=== PATIENT | female | born 1970 | race Caucasian/White ===

== ENCOUNTER 2017-02-13 18:32 | Observation (INO) | payer OTHER ==
--- OUTSIDE RECORDS SUMMARY | 2017-02-13 18:56 | XMS REPORT | Continuity of Care Document ---
:1970 Author Organization [facility] ([facility]) [place] [address] Phone [phone] Care Team Providers Name Role Phone Cathy Bell Primary Care Provider [phone] Source Comments This disclosure is being made pursuant to the Care Everywhere program, applicable federal and state laws, and may not contain all informaitonavailable regarding this patient.[facility] ([facility]) Active Allergies and Adverse Reactions Allergen Noted Date Severity Reactions Comments Carbamazepine Unknown Phenytoin Unknown Current Medications Prescription Sig. Disp. Refills Start Date End Date Status lisinopril (PRINIVIL) 20 take 20 mg by mouth Active mg tablet daily. GOTU GRABIEL, CENTELLA take by mouth. Active ASIATICA, PO PEG 400-Propylene Glycol instill onto the Active (SYSTANE) 0.4-0.3 % Dpet left eye as needed. aspirin 325 mg tablet take 325 mg by Active mouth daily. MULTI-VITAMIN PO Take by mouth. 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 Pain in joint, ankle and foot 11/03/2001 Immunizations Name Dates Previously Given Next Due Novel Influenza H1N1 09/13/2009 Social History Tobacco Use Types Packs/Day Years Used Date Current Every Day Smoker Alcohol Use Drinks/Week oz/Week Comments Yes Last Filed Vital Signs Vital Sign Reading Time Taken Blood Pressure 125/68 01/03/2009 7:55 AM CDT Pulse 61 01/03/2009 7:55 AM CDT Temperature - - Respiratory Rate - - Height 1.56 m (5' 1.41") 01/03/2009 7:55 AM CDT Weight 93.296 kg (205 lb 10.9 oz) 01/03/2009 7:55 AM CDT Body Mass Index 38.34 01/03/2009 7:55 AM CDT Oxygen Saturation - - Plan of Care Health Maintenance Due Date Last Done Comments Hepatitis B Vaccine (1 of 3 - Primary Series) 1970 Tdap Vaccine 1980 Lipid Disorder Screening 1987 MMR Vaccine 1987 Td Vaccine 1987 Pneumococcal Vaccine (1 of 1 - PPSV23) 1988 Cervical Cancer Screening 1999 Mammogram 2009 Influenza Vaccine: Seasonal (#1) 04/28/2016 Results from Last 3 Months Not on file
[2017-02-13 19:00] LABS: Urine Bilirubin Negative (NEGATIVE); Urine Blood 25 /ul (NEGATIVE); Urine Ketone Negative (NEGATIVE); Urine Nitrite Negative (NEGATIVE); Urine Protein 30 mg/dL (NEGATIVE); Urine Specific Gravity 1.025 SP.GR. (1.005-1.010); Urine Urobilinogen Normal (NORMAL)
[2017-02-13 19:05] LABS: Urine Color Yellow
[2017-02-13 19:06] LABS: Urine Appearance Slightly Cloudy; Urine Bacteria TRACE; Urine RBC 0-5 /hpf (0-5); Urine WBC TRACE /hpf (0-5)
--- NOTE | 2017-02-13 19:06 | ERNOTE ---
<Yelena Hu - Last Filed: 02/13/17 21:36> Abdominal HPI - Narrative Date of Service: 02/13/17 - General Chief Complaint: Abdominal Pain Time Seen by Provider: 02/13/17 18:50 Source: patient, RN notes reviewed Exam Limitations: no limitations - Immun/Allergies/Home Medications Immunizatons: IMMUNIZATION HX Immunizations Up to Date No History of Influenza Vaccine No Hx Pneumococcal Vaccination No Allergies/Adverse Reactions: Allergies carbamazepine [From Tegretol] Allergy (Mild, Verified 02/13/17 18:42) Hives phenytoin sodium [From Dilantin] Allergy (Mild, Verified 02/13/17 18:42) Hives phenytoin sodium extended [From Dilantin] Allergy (Mild, Verified 02/13/17 18:42 ) Hives Home Medications: HOME MEDICATIONS Bupropion HCl [Wellbutrin Xl] 300 mg PO DAILY 08/14/15 [Last Taken Unknown] Levothyroxine Sodium [Synthroid] 25 mcg PO DAILY 08/14/15 [Last Taken Unknown] Lisinopril/Hydrochlorothiazide [Zestoretic 20-25 mg Tablet] 1 each PO BID [Last Taken 08/15/15 07:15] lamoTRIgine [Lamictal] 100 mg PO QAM 08/14/15 [Last Taken Unknown] lamoTRIgine [Lamictal] 150 mg PO HS 08/14/15 [Last Taken Unknown] - Pain Score Pain Score #1 Pain Score: 8 Abdominal Pain Onset Location: generalized abdomen Pain Radiation: no radiation - History of Present Illness Narrative: 46 y/o female ambulatory to the ED for generalized abdominal pain that began earlier today. She woke up today with epigastric pain and nausea. She vomited once. Her pain then spread throughout the entire abdomen. She has continued to have nausea today and has not been able to tolerate oral intake d/t this. She reports having a "normal" bowel movement this morning. She has not taken anything for pain. She also reports having a cough and cold symptoms for about a week. She had been taking a daytime/nighttime cold medication but has not had any today. Date (Duration): 02/13/17 Timing: constant Quality: aching, dullness Activities at Onset: none Associated Symptoms: Present: fatigue, nausea, vomiting, loss of appetite. Absent: back pain, chest pain, fever/chills, heartburn, shortness of breath Prior Abdominal Problems: Present: none Prior Treatment: Absent: recently seen Review of Systems - Review of Systems Constitutional: Present: recent illness, fatigue, malaise. Absent: fever, chills EYE: Present: no symptoms reported ENT: Present: nose congestion, nasal drainage. Absent: ear pain, sore throat Respiratory: Present: cough. Absent: shortness of breath Cardiology: Absent: chest pain, edema Gastrointestinal/Abdominal: Present: nausea, vomiting, abdominal pain, eating less, drinking less. Absent: diarrhea, constipation Genitourinary: Absent: dysuria, hematuria Musculoskeletal: Absent: back pain, muscle pain Skin: Absent: rash, lesions Neurological: Absent: headache, dizziness/light-headedness Endocrine: Present: no symptoms reported Hematologic/Lymphatic: Present: no symptoms reported Psych: Present: no symptoms reported - Patient's Past Medical History Patient History - Medical: Anxiety, Hypothyroidism Patient History - Cardiac/Respiratory: Hypertension Patient History - Cancer: No Hx of Cancer Patient History - Surgical Procedures: , Other - Essure permanent sterilization, Orthopedic Patient History - Other: None LMP (females 10-50): Essure - Family History Grandfather-Maternal Family History - Cardiac/Respiratory: Other Grandmother-Maternal Family History - Medical: Diabetes Type 2 Family History - Cardiac/Respiratory: Other Mother Family History - Medical: Diabetes Type 2, Renal Failure Family History - Cardiac/Respiratory: Coronary Heart Disease Sister Family History - Medical: Hypothyroidism - Social History Living Situations: home Abuse History: No History of abuse Psych History: Hx of Anxiety, Hx of Depression, Current tx/ever been on anti- depressants or anti-anxiety meds Smoking Status: Current every day smoker Cigarettes Packs Per Day: 0.5 Alcohol Use: occasionally Drug Use: other - Immunizations Immunizations Up to Date: No Hx Pneumococcal Vaccination: No History of Influenza Vaccine: No Physical Exam - Physical Exam General Appearance: Present: wd/wn, alert, other - noted to be uncomfortable Ears, Nose, Throat: Present: normal pharynx. Absent: abnormal TM (R), abnormal TM (L), nasal congestion, sinus pain/drainage Neck: Present: normal inspection, nontender, supple Respiratory: Present: no respiratory distress, normal breath sounds, no accessory muscle use, lungs clear Cardiovascular/Chest: Present: regular rate, rhythm, no murmur Gastrointestinal/Abdominal: Present: normal bowel sounds, soft, tenderness - diffuse, worse in lower abdomen, distended - mild. Absent: rebound, mass Back Exam: Present: normal inspection, no CVA tenderness Neurological Exam: Present: alert, oriented, normal mood/affect, no motor/ sensory deficits Skin Exam: Present: normal color, warm/dry ED Progress - Results and Orders Patient's Lab Results:: I have reviewed the patient's lab results. - Vital Signs Patient's Vital Signs:: I have reviewed the patient's vital signs. Vital Signs: Vital Signs 02/13/17 18:36 Temperature 37.0 C Pulse Rate 74 Respiratory 18 Rate Blood Pressure 194/99 O2 Sat by Pulse 98 Oximetry - X-Ray X-Ray #1 X-Ray: abdomen Interpretation: Reviewed by me X-ray Comments: Nonobstructive bowel gas pattern, no free air, no air fluid levels - Progress/Reassessment Chief Complaint: Abdominal Pain Progress:: Unchanged Progress Note-Subjective: 02/13/17 20:43 Patient denied need for pain medication on initial exam. Discussed lab and xray results. CT ordered. Feels a little nauseous - Zofran ordered before patient to start drinking oral contrast. Agreed to take Toradol for pain since she will have an IV now anyway. 02/13/17 21:37 Patient drinking contrast. Denies needs. Care turned over to Dr. Ortega. - Transfer of Care Physician Sign Out: Yelena Hu Receiving Physician: Blane Martinez Pending Results: CT/MRI results Expected Disposition: Discharge Departure - Departure Clinical Impression: Abdominal pain Qualifiers: Abdominal location: right lower quadrant Qualified Code(s): R10.31 - Right lower quadrant pain Acute appendicitis without mention of peritonitis Qualifiers: Acute appendicitis type: other Qualified Code(s): K35.89 - Other acute appendicitis Cholelithiases Qualifiers: Cholelithiasis location: gallbladder Cholecystitis presence: without cholecystitis Biliary obstruction: without biliary obstruction Qualified Code(s) : K80.20 - Calculus of gallbladder without cholecystitis without obstruction Disposition: [facility] Condition: Fair Instructions: Laparoscopic Appendectomy, Adult, Appendicitis, [id number], Cholelithiasis Referrals: Cathy Bell MD [Primary Care Provider] - Roberto Garg MD [Associate] - <Blane Martinez - Last Filed: 02/13/17 23:28> Abdominal HPI - Immun/Allergies/Home Medications Immunizatons: IMMUNIZATION HX Immunizations Up to Date No History of Influenza Vaccine No Hx Pneumococcal Vaccination No ED Progress - Vital Signs Vital Signs: Vital Signs 02/13/17 02/13/17 02/13/17 18:36 19:20 19:52 Temperature 37.0 C 36.5 C 36.3 C L Pulse Rate 74 75 76 Respiratory 18 16 13 Rate Blood Pressure 194/99 187/86 176/85 O2 Sat by Pulse 98 100 97 Oximetry 02/13/17 02/13/17 02/13/17 20:28 20:50 21:17 Temperature 36.4 C L 36.4 C L 36.4 C L Pulse Rate 81 76 75 Respiratory 14 14 14 Rate Blood Pressure 179/83 178/82 177/84 O2 Sat by Pulse 96 99 99 Oximetry 02/13/17 02/13/17 02/13/17 21:48 22:40 22:59 Temperature 36.5 C 38.8 C H Pulse Rate 77 74 Respiratory 14 14 Rate Blood Pressure 174/83 174/80 O2 Sat by Pulse 97 98 Oximetry - CT/Ultrasound CT/Ultrasound Narrative: ACUTE APPENDICITIS WITHOUT ABSCESS. CHOLELITHIASIS. - Transfer of Care Expected Disposition: Admit - PT CT CAME BACK POSITIVE FOR ACUTE APPY. SHE DOES NOW HAVE RLQ REBOUND PAIN AND A FEVER. SITUATION EXPLAINED TO HER AND WE WILL CALL DR GARG FOR ADMIT. Plan - Plan Plan: PT IS TO BE ADMITTED TO DR GIBSON KIM WITH PLANS FOR SURGERY IN THE A.M. PT HOPES TO BE ABLE TO GO TO [facility] ON THURSDAY . SURGEON ORDERED A DOSE OF LEVAQUIN AND FLAGYL TO BE GIVEN NOW.
[2017-02-13 19:19] LABS: Hematocrit 42.9 % (37.0-47.0); Hemoglobin 14.3 gm/dL (12.5-16.0); Mean Cell Volume 88.8 fl (78-100); Mean Corpuscular Hemoglobin 29.6 pg (27-31); Mean Corpuscular Hgb Conc 33.3 g/dl (32-36); Mean Platelet Volume 9.1 fl (6.0-9.5); Neutrophil % 80.9 % (42-75.0); Platelet Count 324 K/mm3 (150-450); Red Blood Count 4.83 M/mm3 (4.2-5.4); Red Cell Distribution Width 13.7 % (11.5-14.0); White Blood Count 18.5 K/mm3 (4.0-10.5)
[2017-02-13 19:32] LABS: Albumin * 3.5 gm/dl (3.4-5.0); Anion Gap 8.7 mmol/L (6.8-13.8); BUN/Creatinine Ratio 13.2 (9.0-21.6); Bilirubin, Total 0.4 mg/dL (0.0-1.1); Ca. Corrected For Albumin 8.7 mg/dL (8.4-10.2); Calcium * 8.6 mg/dL (7.9-10.9); Carbon Dioxide 31.7 mmol/L (24-32.6); Potassium 3.4 mmol/L (3.4-4.6); Total Protein 7.2 gm/dL (6.2-8.2)
[2017-02-13 20:04] LABS: CRP 2.9 mg/dL (0.0-0.9)
[2017-02-13] MEDS ORDERED: ONDANSETRON HCL/PF 2 MG/ML VIAL IV ONE (20:40)
[2017-02-13] MEDS ORDERED: KETOROLAC TROMETHAMINE 30 MG/ML VIAL IV ONE (20:40)
[2017-02-13] MEDS ORDERED: DIATRIZOATE MEGLU/DIATRIZO SOD 30 ML BTL PO ONE (20:43)
[2017-02-13] MEDS ORDERED: DIATRIZOATE MEGLU/DIATRIZO SOD 30 ML BTL ONE (20:44)
[2017-02-13] MEDS ORDERED: ONDANSETRON HCL/PF 2 MG/ML VIAL ONE (20:54)
[2017-02-13] MEDS ORDERED: KETOROLAC TROMETHAMINE 30 MG/ML VIAL ONE (20:55)
[2017-02-13] MEDS ORDERED: metroNIDAZOLE/SODIUM CHLORIDE 500 MG/100 ML BAG IV ONE (23:13)
[2017-02-13] MEDS ORDERED: RINGERS SOLUTION,LACTATED 1,000 ML IV ONE (23:13)
[2017-02-13] MEDS ORDERED: LEVOFLOXACIN/D5W 750 MG/150 ML BAG IV ONE (23:13)
[2017-02-13] MEDS ORDERED: ONDANSETRON HCL/PF 2 MG/ML VIAL IV PRN (23:18)
--- OUTSIDE RECORDS SUMMARY | 2017-02-13 23:18 | XMS REPORT | Continuity of Care Document ---
:1970 Author Organization [facility] ([facility]) [place] [address] Phone [phone] Care Team Providers Name Role Phone Cathy Bell Primary Care Provider [phone] Source Comments This disclosure is being made pursuant to the Care Everywhere program, applicable federal and state laws, and may not contain all informaitonavailable regarding this patient.[facility] ([facility]) Active Allergies and Adverse Reactions Allergen Noted [...]
[2017-02-14] MEDS: MORPHINE SULFATE 4 MG/ML SYRG IV PRN ×3 (00:42→09:12)
[2017-02-14] MEDS ORDERED: ACETAMINOPHEN 325 MG TABLET PO PRN (04:04)
[2017-02-14] MEDS ORDERED: RINGERS SOLUTION,LACTATED 1,000 ML IV PRN (07:22)
[2017-02-14] MEDS ORDERED: RINGERS SOLUTION,LACTATED 1,000 ML IV ONE ×2 (09:55→10:55)
--- NOTE | 2017-02-14 09:58 | HP ---
Chief Complaint - Chief Complaint Date of Service: 02/14/17 Time of Service: 09:53 Chief Complaint: Abdominal pain History of Present Illness: Onset of generalized abdominal pain yesterday eventually migrating to RLQ around midnight. Seen in ER with WBC 18K and CT c/w acute appendicitis. Pt has received IV abx and have plans for a laparoscopic appendectomy later this morning. - Patient's Past Medical History Patient History - Medical: Anxiety, Hypothyroidism Patient History - Cardiac/Respiratory: Hypertension Patient History - Cancer: No Hx of Cancer Patient History - Surgical Procedures: , Other, Orthopedic Patient History - Other: None LMP (females 10-50): Menopausal - Family History Grandfather-Maternal Family History - Medical: , No pertinent hx Family History - Cardiac/Respiratory: Other Family History - Cancer: No pertinent family hx Grandmother-Maternal Family History - Medical: , Diabetes Type 2 Family History - Cardiac/Respiratory: Other Family History - Cancer: No pertinent family hx Mother Family History - Medical: , Diabetes Type 2, Renal Failure Family History - Cardiac/Respiratory: Coronary Heart Disease Family History - Cancer: No pertinent family hx Sister Family History - Medical: Hypothyroidism Family History - Cardiac/Respiratory: No pertinent hx Family History - Cancer: No pertinent family hx - Social History Living Situations: home Abuse History: No History of abuse Psych History: Hx of Anxiety, Hx of Depression, Current tx/ever been on anti- depressants or anti-anxiety meds Smoking Status: Current every day smoker Cigarettes Packs Per Day: 0.5 Have you smoked in the past 12 months: Yes Do you dip or chew tobacco: No Patient requests Smoking Cessation Consult: No Initiate information on Smoking Cessation: No Alcohol Use: occasionally Drug Use: none - Immunizations Immunizations Up to Date: No Hx Pneumococcal Vaccination: No History of Influenza Vaccine: No Review Of Systems (GEN) - Review of Systems Abdominal: Present: Other - Hx x 2 Misc: All systems neg except as marked Allergies/Adverse Reactions: Allergies Allergy/AdvReac Type Severity Reaction Status Date / Time carbamazepine [From Tegretol] Allergy Mild Hives Verified 02/13/17 18:42 phenytoin sodium Allergy Mild Hives Verified 02/13/17 18:42 [From Dilantin] phenytoin sodium extended Allergy Mild Hives Verified 02/13/17 18:42 [From Dilantin] Home Medications: HOME MEDICATIONS Bupropion HCl [Wellbutrin Xl] 300 mg PO DAILY 08/14/15 [Last Taken Unknown] Levothyroxine Sodium [Synthroid] 25 mcg PO DAILY 08/14/15 [Last Taken Unknown] Lisinopril/Hydrochlorothiazide [Zestoretic 20-25 mg Tablet] 1 each PO BID [Last Taken 08/15/15 07:15] lamoTRIgine [Lamictal] 100 mg PO QAM 08/14/15 [Last Taken Unknown] lamoTRIgine [Lamictal] 150 mg PO HS 08/14/15 [Last Taken Unknown] Exam - Exam Vital Signs: Vital Signs - Last Taken Temp 36.9 C 02/14/17 09:32 Pulse 81 02/14/17 09:32 Resp 20 02/14/17 09:32 BP 144/79 02/14/17 09:32 Pulse Ox 95 02/14/17 09:32 Constitutional: Present: Alert, Oriented x3, Cooperative, No distress ENT Exam: Present: normal ENT inspection Eye Exam: bilateral eye: normal inspection Neck: Present: non-tender, full range of motion, supple, normal inspection, trachea midline. Absent: lymphadenopathy (R), lymphadenopathy (L), thyromegaly Back Exam: Present: normal inspection Respiratory: Present: normal breath sounds, no respiratory distress Cardiovascular/Chest: Present: regular rate, rhythm, no murmur Abdomen: Present: Normal bowel sounds, tender - rlq Neurologic: Present: no motor/sensory deficits Diagnostic Studies: Laboratory Results WBC 18.5 K/mm3 (4.0-10.5) H 02/13/17 19:13 RBC 4.83 M/mm3 (4.2-5.4) 02/13/17 19:13 Hgb 14.3 gm/dL (12.5-16.0) 02/13/17 19:13 Hct 42.9 % (37.0-47.0) 02/13/17 19:13 MCV 88.8 fl (78-100) 02/13/17 19:13 MCH 29.6 pg (27-31) 02/13/17 19:13 MCHC 33.3 g/dl (32-36) 02/13/17 19:13 RDW 13.7 % (11.5-14.0) 02/13/17 19:13 Plt Count 324 K/mm3 (150-450) 02/13/17 19:13 MPV 9.1 fl (6.0-9.5) 02/13/17 19:13 Immature Gran % (Auto) 0.40 % (0.001-0.429) 02/13/17 19:13 Immature Gran # (Auto) 0.07 K/mm3 (0.000-0.0310) H 02/13/17 19:13 Neutrophils % 80.9 % (42-75.0) H 02/13/17 19:13 Lymphocytes % 12.0 % (20-51) L 02/13/17 19:13 Monocytes % 5.6 % (0.0-9) 02/13/17 19:13 Eosinophils % 0.8 % (0.0-3.0) 02/13/17 19:13 Basophils % 0.3 % (0.0-1.0) 02/13/17 19:13 Nucleated RBC % 0.0 k/mm3 (0-1) 02/13/17 19:13 Neutrophils # 15.0 K/mm3 (1.3-6.0) H 02/13/17 19:13 Lymphocytes # 2.2 k/mm3 (1.5-3.5) 02/13/17 19:13 Monocytes # 1.0 k/mm3 (0.0-1.0) 02/13/17 19:13 Eosinophils # 0.2 k/mm3 (0.0-0.7) 02/13/17 19:13 Absolute Basophils 0.1 k/mm3 (0.0-0.1) 02/13/17 19:13 ESR 21 mm/hr (0-15) H 02/13/17 19:13 Sodium 140 mmol/L (132-142) 02/13/17 19:13 Plasma Sodium 140 mmol/L (130-142) 02/13/17 19:13 Potassium 3.4 mmol/L (3.4-4.6) 02/13/17 19:13 Chloride 103 mmol/L (97-106) 02/13/17 19:13 Carbon Dioxide 31.7 mmol/L (24-32.6) 02/13/17 19:13 Anion Gap 8.7 mmol/L (6.8-13.8) 02/13/17 19:13 BUN 9 mg/dL (3-23) 02/13/17 19:13 Creatinine 0.68 mg/dL (0.4-1.4) 02/13/17 19:13 Est GFR (Non-Af Amer) 99 mL/min (60-130) D 02/13/17 19:13 BUN/Creatinine Ratio 13.2 (9.0-21.6) 02/13/17 19:13 Random Glucose 99 mg/dL (70-110) 02/13/17 19:13 Calcium 8.6 mg/dL (7.9-10.9) 02/13/17 19:13 Calcium Adj for Albumin 8.7 mg/dL (8.4-10.2) 02/13/17 19:13 Total Bilirubin 0.4 mg/dL (0.0-1.1) 02/13/17 19:13 AST 13 U/L (0-48) 02/13/17 19:13 ALT 21 U/L (19-67) 02/13/17 19:13 Alkaline Phosphatase 70 U/L (50-170) 02/13/17 19:13 C-Reactive Prot, Quant 2.9 mg/dL (0.0-0.9) H 02/13/17 19:13 Total Protein 7.2 gm/dL (6.2-8.2) 02/13/17 19:13 Albumin 3.5 gm/dl (3.4-5.0) 02/13/17 19:13 Amylase 30 U/L (25-115) 02/13/17 19:13 Lipase 156 U/L (73-393) 02/13/17 19:13 Urine Color Yellow 02/13/17 18:50 Urine Appearance Slightly cloudy 02/13/17 18:50 Urine pH 6.0 pH (5.0-7.0) 02/13/17 18:50 Ur Specific [place] 1.025 SP.GR. (1.005-1.010) 02/13/17 18:50 Urine Protein 30 mg/dL (NEGATIVE) H 02/13/17 18:50 Urine Glucose (UA) Negative mg/dL (NEGATIVE) 02/13/17 18:50 Urine Ketones Negative mg/dL (NEGATIVE) 02/13/17 18:50 Urine Blood 25 /ul (NEGATIVE) H 02/13/17 18:50 Urine Nitrate Negative (NEGATIVE) 02/13/17 18:50 Urine Bilirubin Negative mg/dl (NEGATIVE) 02/13/17 18:50 Prot Sulfosalicylic Acd 1+ mg/dL (0) 02/13/17 18:50 Urine Urobilinogen Normal EU/dl (NORMAL) 02/13/17 18:50 Ur Leukocyte Esterase Negative /ul (NEGATIVE) 02/13/17 18:50 Urine RBC 0-5 /hpf (0-5) 02/13/17 18:50 Urine WBC Trace /hpf (0-5) H 02/13/17 18:50 Ur Epithelial Cells 5-10 /hpf (0-5) H 02/13/17 18:50 Urine Bacteria Trace (NONE) 02/13/17 18:50 Urine Culture Comments No culture indicated 02/13/17 18:50 Urine HCG, Qual Negative (NEGATIVE) 02/13/17 18:50 Assessment/Plan - Narrative Narrative: A: Acute appendicitis, non-perforated - Procedures Results: P: Laparoscopic appendectomy. The options, risks, and benefits were reviewed with the pt fully. She seems to understand, asks appropriate questions, and desires to proceed.
[2017-02-14] MEDS ORDERED: BUPIVACAINE HCL/EPINEPHRINE 50 ML VIAL IJ ONE ×2 (10:25)
[2017-02-14] MEDS ORDERED: ONDANSETRON HCL/PF 2 MG/ML VIAL IV PRN (11:14)
--- NOTE | 2017-02-14 11:16 | OR ---
Operative Report - Dictated Report Narrative: Date: 02/14/2017 PREOP: Acute appendicitis POSTOP: Same, perforated PROC: Laparoscopic appendectomy SURGEON: Roberto Garg MD ANESTH: GETA EBL: Minimal SPECIMEN: Appendix and fecalith DRAINS: none COMPS: none apparent DESCR: Pt placed in supine position and after GETA a gutierrez was inserted and abdomen prepped and draped in a sterile fashion. All port sites were anesthetized with marcaine prior to incision. Supraumbilical 5mm incision made and abdomen entered under direct vision with 5mm blunt port with scope in the lumen of the trocar. 12mm suprapubic and 5mm llq ports placed under direct vision. No pus seen. Reactive fluid evacuated. Sigmoid colon and terminal ileum had walled off appendix. These adhesions were taken down with blunt dissection. appendix had transmural necrosis near its base with fecalith poking out. The distal segmen and fecalith were placed in endocatch bag and removed. Mesoappendix taken down with thunderbeat. Cecum mobilized with thunderbeat. Remaining segment of appendix taken with endoGIA. This was removed in an endocatch bag. Hemostasis was adequate. Pneumoperitoneum evacuated. No adhesions from C- sections was seen. Ovaries were visualized and without abnormality. Top part of uterus visualized and without obvious abnormality. Incisions closed with 4-0 vicryl and sealed with dermabond. Pt discharged from OR in stable condition without apparent complications.
[2017-02-14] MEDS ORDERED: oxyCODONE HCL/ACETAMINOPHEN 1 TAB TABLET PO PRN (11:24)
[2017-02-14] MEDS ORDERED: metroNIDAZOLE/SODIUM CHLORIDE 500 MG/100 ML BAG IV SCH (11:30)
--- NOTE | 2017-02-14 11:43 | DS ---
(1) Acute appendicitis without mention of peritonitis Problem: Resolved Qualifiers: Acute appendicitis type: other Qualified Code(s): K35.89 - Other acute appendicitis (2) Cholelithiases Problem: Chronic Qualifiers: Cholelithiasis location: gallbladder Cholecystitis presence: without cholecystitis Biliary obstruction: without biliary obstruction Qualified Code(s): K80.20 - Calculus of gallbladder without cholecystitis without obstruction Description of Stay: Pt presented to the ER with c/o abdominal pain and was found to have acute appendicitis. She was admitted, hydrated, given IV abx, and underwent a laparoscopic appendectomy. The appendix was walled off and no purulence was encountered but it was found to have transmural necrosis and fell apart during the dissection. She tolerated the procedure well and is discharged in improved condition. She is given a script for 7 days of levaquin/flagyl She is given a script for [place] and Motrin. She may shower Diet is regular She may shower Avoid submersing wounds for 7 days FU 7 days Procedures Performed: see notes below List Procedures: Laparoscopic appendectomy Results and Findings: Acute appendicitis. Calcified solitary gallstone by CT Discharge Disposition: Home self care Disposition: Home self-care Condition: Good Discharge Activity: Activity as tolerated, Other - May shower. Avoid submersing wounds for 1 week. Discharge Diet: General/regular food Referrals: Cathy Bell MD [Primary Care Provider] - Roberto Garg MD [Associate] - Problem Oriented Discharge Instructions to Patient/Family: Cholelithiasis, Laparoscopic Appendectomy, Adult, Appendicitis, [id number] Complete Home Medications List: Complete Home Medication List: Bupropion HCl [Wellbutrin Xl] 300 mg PO DAILY 08/14/15 Levothyroxine Sodium [Synthroid] 25 mcg PO DAILY 08/14/15 Lisinopril/Hydrochlorothiazide [Zestoretic 20-25 mg Tablet] 1 each PO BID lamoTRIgine [Lamictal] 100 mg PO QAM 08/14/15 lamoTRIgine [Lamictal] 150 mg PO HS 08/14/15
[2017-02-14 14:04] VITALS: BP 171/93
== END 2017-02-14 14:40 | disposition home or self-care (01) ==
LOC: ER 18:32 → MS 23:14
PROVIDERS: ADMIT Specialist; ATTEND Specialist
PROC: 0DTJ4ZZ Resection of Appendix, Percutaneous Endoscopic Approach (ICD-10-PCS; principal; 2017-02-14 10:00)
DX: K35.2 Acute appendicitis with generalized peritonitis (principal)
CPT/HCPCS: 36415; 44970; 74020; 74177; 80053; 81001; 82150; 83690; 84703; 85025; 85652; 86140; 88304; 96365; 96367; 96375; 99284; G0378

== ENCOUNTER 2017-02-24 16:34 | Emergency (ER) | payer OTHER ==
[2017-02-24 19:00] LABS: Albumin * 3.3 gm/dl (3.4-5.0); Anion Gap 13.8 mmol/L (6.8-13.8); Bilirubin, Total 0.1 mg/dL (0.0-1.1); Ca. Corrected For Albumin 9.1 mg/dL (8.4-10.2); Calcium * 8.9 mg/dL (7.9-10.9); Carbon Dioxide 27.4 mmol/L (24-32.6); Potassium 3.2 mmol/L (3.4-4.6)
[2017-02-24 19:04] LABS: Urine Bilirubin Negative (NEGATIVE); Urine Ketone Negative (NEGATIVE); Urine Nitrite Negative (NEGATIVE); Urine Protein Negative (NEGATIVE); Urine Specific Gravity 1.025 SP.GR. (1.005-1.010); Urine Urobilinogen Normal (NORMAL)
--- NOTE | 2017-02-24 19:31 | ERNOTE ---
<Yelena Hu - Last Filed: 02/24/17 22:04> Abdominal HPI - Narrative Date of Service: 02/24/17 - General Chief Complaint: Abdominal Pain Time Seen by Provider: 02/24/17 19:18 Source: patient, RN notes reviewed Exam Limitations: no limitations - Immun/Allergies/Home Medications Immunizatons: IMMUNIZATION HX Immunizations Up to Date No History of Influenza Vaccine No Hx Pneumococcal Vaccination No Allergies/Adverse Reactions: Allergies carbamazepine [From Tegretol] Allergy (Mild, Verified 02/24/17 16:47) Hives phenytoin sodium [From Dilantin] Allergy (Mild, Verified 02/24/17 16:47) Hives phenytoin sodium extended [From Dilantin] Allergy (Mild, Verified 02/24/17 16:47 ) Hives Home Medications: HOME MEDICATIONS Bupropion HCl [Wellbutrin Xl] 300 mg PO DAILY 08/14/15 [Last Taken Unknown] Levothyroxine Sodium [Synthroid] 25 mcg PO DAILY 08/14/15 [Last Taken Unknown] Lisinopril/Hydrochlorothiazide [Zestoretic 20-25 mg Tablet] 1 each PO BID [Last Taken 08/15/15 07:15] lamoTRIgine [Lamictal] 100 mg PO QAM 08/14/15 [Last Taken Unknown] lamoTRIgine [Lamictal] 150 mg PO HS 08/14/15 [Last Taken Unknown] Cyclobenzaprine HCl [Flexeril] 10 mg PO TID PRN #15 tab 02/24/17 [Last Taken Unknown] - History of Present Illness Narrative: 46 y/o female ambulatory to the ED for RUQ abdominal pain. This began 2 days ago. It is much worse when deep breathing or coughing. She had an appendectomy here on 02/13. She has otherwise been doing well since her surgery. She has been very active for the past few days doing yardwork. She denies any fever. She has been coughing occasionally, but reports it is not anything frequent or persistent. She is a smoker. She has not taken anything for pain since having ibuprofen earlier this morning. She declines pain medication on initial evaluation. Timing: intermittent Quality: severe, sharpness, stabbing Activities at Onset: none Modifying Factors - (Improves): Present: rest Modifying Factors - (Worsens): Present: breathing, coughing Associated Symptoms: Absent: fever/chills, nausea, vomiting, shortness of breath Prior Treatment: Present: recently seen Review of Systems - Review of Systems Constitutional: Present: recent illness. Absent: fever, chills, malaise EYE: Present: no symptoms reported ENT: Present: no symptoms reported Respiratory: Present: cough. Absent: shortness of breath, orthopnea, wheezing Cardiology: Absent: chest pain, edema, claudication Gastrointestinal/Abdominal: Present: abdominal pain. Absent: nausea, vomiting, diarrhea, constipation, eating less, drinking less Genitourinary: Present: no symptoms reported Musculoskeletal: Absent: back pain, muscle pain Skin: Absent: rash, lesions, lumps, change in color Neurological: Absent: dizziness/light-headedness, weakness, numbness, tingling Endocrine: Present: no symptoms reported Hematologic/Lymphatic: Present: no symptoms reported Psych: Present: no symptoms reported - Patient's Past Medical History Patient History - Medical: Anxiety, Hypothyroidism Patient History - Cardiac/Respiratory: Hypertension Patient History - Cancer: No Hx of Cancer Patient History - Surgical Procedures: Appendectomy, , Other, Orthopedic Patient History - Other: None LMP (females 10-50): now - Family History Grandfather-Maternal Family History - Medical: , No pertinent hx Family History - Cardiac/Respiratory: Other Family History - Cancer: No pertinent family hx Grandmother-Maternal Family History - Medical: , Diabetes Type 2 Family History - Cardiac/Respiratory: Other Family History - Cancer: No pertinent family hx Mother Family History - Medical: , Diabetes Type 2, Renal Failure Family History - Cardiac/Respiratory: Coronary Heart Disease Family History - Cancer: No pertinent family hx Sister Family History - Medical: Hypothyroidism Family History - Cardiac/Respiratory: No pertinent hx Family History - Cancer: No pertinent family hx - Social History Living Situations: home Abuse History: No History of abuse Psych History: Hx of Anxiety, Hx of Depression, Current tx/ever been on anti- depressants or anti-anxiety meds Smoking Status: Current every day smoker Alcohol Use: occasionally Drug Use: none - Immunizations Immunizations Up to Date: No Hx Pneumococcal Vaccination: No History of Influenza Vaccine: No Physical Exam - Physical Exam General Appearance: Present: wd/wn, alert, no apparent distress Neck: Present: normal inspection, nontender, supple, full range of motion Respiratory: Present: no respiratory distress, normal breath sounds, no accessory muscle use, chest nontender, lungs clear Cardiovascular/Chest: Present: regular rate, rhythm, no murmur, normal peripheral pulses Gastrointestinal/Abdominal: Present: normal bowel sounds, soft, no organomegaly , tenderness - RUQ, distended - obese, Traylor sign. Absent: rebound, mass Back Exam: Present: normal inspection, no CVA tenderness Extremity Exam: Present: normal inspection, non-tender, no edema Neurological Exam: Present: alert, oriented, normal mood/affect Skin Exam: Present: normal color, warm/dry ED Progress - Results and Orders Patient's Lab Results:: I have reviewed the patient's lab results. - Vital Signs Patient's Vital Signs:: I have reviewed the patient's vital signs. Vital Signs: Vital Signs 02/24/17 02/24/17 16:44 18:51 Temperature 36.9 C Pulse Rate 92 89 Respiratory 16 18 Rate Blood Pressure 159/103 141/84 O2 Sat by Pulse 99 99 Oximetry - X-Ray X-Ray #1 X-Ray: abdomen Interpretation: Reviewed by me X-ray Comments: TWO VIEW ABDOMEN / ABDOMINAL SERIES COMPARISON: 02/13/2017 Supine and erect AP projections of the abdomen and pelvis were obtained. There are small amounts of gas identified within the bowel. I do not see evidence for gaseous dilatation of the bowel, air-fluid levels , or free air. There is a small to moderate amount stool seen diffusely within the colon. The visualized lung bases are clear. I am not convinced of radiodensities overlying the kidneys. There is intrauterine device within the mid pelvis. There is a subtle rounded density with rim calcification the right upper quadrant suggesting a calcified gallstone IMPRESSION: 1. NONSPECIFIC BOWEL GAS PATTERN. 2. SMALL TO MODERATE AMOUNT OF STOOL WITHIN THE COLON. 3. PROBABLE CALCIFIED GALLSTONE. 4. INTRAUTERINE DEVICE Electronically signed by Luis Tavarez M.D.. - CT/Ultrasound CT/Ultrasound Narrative: Technique: 2D grayscale ultrasound images of the gallbladder were obtained. Findings: A gallbladder is identified. There is a 2.7 cm calcified shadowing gallstone. I do not see evidence for pericholecystic fluid or gallbladder wall thickening. The gallbladder wall measures 2.9 mm. There was a equivocal ultrasound Traylor's sign. The visualized adjacent liver is homogeneous in appearance. The entire liver is not visualized on this study. The common hepatic duct measures 1.9 mm and the common bile duct measures 2.7 mm. IMPRESSION: 1. 2.7 CM CALCIFIED GALLSTONE WITHOUT GALLBLADDER WALL THICKENING. THERE IS AN EQUIVOCAL ULTRASOUND TRAYLOR'S SIGN. THESE FINDINGS DO NOT SUGGEST ACUTE CHOLECYSTITIS; IF THERE IS CONTINUED CLINICAL CONCERN, A NUCLEAR MEDICINE HEPATOBILIARY SCAN IS RECOMMENDED 2. NORMAL COMMON BILE DUCT. Electronically signed by Luis Tavarez M.D.. - Progress/Reassessment Chief Complaint: Abdominal Pain Progress:: Unchanged - Transfer of Care Physician Sign Out: Yelena Hu Brief History: US showed cholelithiasis without acute cholecystitis, Ddimer elevated, chest CT results pending. Patient continues to deny needing any pain medication. Receiving Physician: Tavares Yoder Pending Results: CT/MRI results Expected Disposition: Discharge Departure - Departure Clinical Impression: Right upper quadrant abdominal pain, Rib pain on right side Cholelithiasis Qualifiers: Cholelithiasis location: gallbladder Cholecystitis presence: without cholecystitis Biliary obstruction: without biliary obstruction Qualified Code(s) : K80.20 - Calculus of gallbladder without cholecystitis without obstruction Disposition: Home Follow Up Needed Condition: Good Instructions: Cholelithiasis Additional Instructions: Very low fat diet may help your gallbladder. you may try some back treatment to help your rib. Follow up with your regular doctor if not improving Prescriptions: Cyclobenzaprine HCl [Flexeril] 10 mg PO TID PRN #15 tab PRN Reason: MUSCLE SPASMS <Tavares Yoder - Last Filed: 02/25/17 03:43> Abdominal HPI - Immun/Allergies/Home Medications Immunizatons: IMMUNIZATION HX Immunizations Up to Date No History of Influenza Vaccine No Hx Pneumococcal Vaccination No ED Progress - Results and Orders Patient's Lab Results:: I have reviewed the patient's lab results. Results and Orders: Laboratory Tests 02/24/17 02/24/17 02/24/17 16:50 17:04 17:04 WBC 13.9 H Hgb 15.8 Hct 46.7 Plt Count 584 H D-Dimer Sodium 141 Potassium 3.2 L Chloride 103 Carbon Dioxide 27.4 Anion Gap 13.8 BUN 12 Creatinine 0.75 Est GFR (Non-Af Amer) 88 BUN/Creatinine Ratio 16.0 Random Glucose 141 H Calcium 8.9 Total Bilirubin 0.1 AST 11 ALT 29 Alkaline Phosphatase 79 Total Protein 8.0 Albumin 3.3 L Amylase 50 Lipase 420 H Urine Color Yellow Urine Appearance Clear Urine pH 6.0 Ur Specific [place] 1.025 Urine Protein Negative Urine Glucose (UA) Negative Urine Ketones Negative Urine Blood 10 H Urine Nitrate Negative Urine Bilirubin Negative Urine Urobilinogen Normal Ur Leukocyte Esterase Negative Urine RBC None seen Urine WBC None seen Ur Epithelial Cells 0-5 Urine Bacteria None seen Urine Culture Comments No culture indicated 02/24/17 17:04 WBC Hgb Hct Plt Count D-Dimer 2.32 H Sodium Potassium Chloride Carbon Dioxide Anion Gap BUN Creatinine Est GFR (Non-Af Amer) BUN/Creatinine Ratio Random Glucose Calcium Total Bilirubin AST ALT Alkaline Phosphatase Total Protein Albumin Amylase Lipase Urine Color Urine Appearance Urine pH Ur Specific [place] Urine Protein Urine Glucose (UA) Urine Ketones Urine Blood Urine Nitrate Urine Bilirubin Urine Urobilinogen Ur Leukocyte Esterase Urine RBC Urine WBC Ur Epithelial Cells Urine Bacteria Urine Culture Comments - Vital Signs Patient's Vital Signs:: I have reviewed the patient's vital signs. Vital Signs: Vital Signs 02/24/17 02/24/17 02/24/17 16:44 18:51 19:39 Temperature 36.9 C 37.0 C Pulse Rate 92 89 89 Respiratory 16 18 18 Rate Blood Pressure 159/103 141/84 152/103 O2 Sat by Pulse 99 99 99 Oximetry 02/24/17 02/24/17 02/24/17 20:24 20:57 21:50 Temperature 36.6 C Pulse Rate 84 92 82 Respiratory 18 18 18 Rate Blood Pressure 141/110 164/100 140/90 O2 Sat by Pulse 98 98 98 Oximetry 02/24/17 23:00 Temperature 36.4 C L Pulse Rate 89 Respiratory 18 Rate Blood Pressure 142/92 O2 Sat by Pulse 98 Oximetry - CT/Ultrasound CT/Ultrasound Narrative: CT chest angiogram PE protocol IMPRESSION: 1. NO EVIDENCE FOR PULMONARY EMBOLUS. 2. SMALL HIATAL HERNIA. 3. CALCIFIED GALLSTONE Electronically signed by Luis Tavarez M.D..
[2017-02-24 19:43] LABS: Hematocrit 46.7 % (37.0-47.0); Hemoglobin 15.8 gm/dL (12.5-16.0); Mean Cell Volume 87.9 fl (78-100); Mean Corpuscular Hemoglobin 29.8 pg (27-31); Mean Corpuscular Hgb Conc 33.8 g/dl (32-36); Mean Platelet Volume 8.9 fl (6.0-9.5); Neutrophil # 8.1 K/mm3 (1.3-6.0); Neutrophil % 58.2 % (42-75.0); Platelet Count 584 K/mm3 (150-450); Red Blood Count 5.31 M/mm3 (4.2-5.4); Red Cell Distribution Width 14.6 % (11.5-14.0); White Blood Count 13.9 K/mm3 (4.0-10.5)
[2017-02-24 19:52] LABS: Urine Appearance Clear; Urine Blood 10 /ul (NEGATIVE); Urine Color Yellow
[2017-02-24 19:53] LABS: Urine Bacteria None Seen; Urine RBC None Seen /hpf (0-5); Urine WBC None Seen /hpf (0-5)
[2017-02-24] MEDS ORDERED: CYCLOBENZAPRINE HCL 10 MG TABLET PO ONE (23:28)
[2017-02-24] MEDS ORDERED: CYCLOBENZAPRINE HCL 10 MG TABLET ONE (23:32)
[2017-02-24 23:41] VITALS: BP 184/97
--- OUTSIDE RECORDS SUMMARY | 2017-02-25 11:09 | XMS REPORT | Continuity of Care Document ---
:1970 Author Organization [facility] ([facility]) Address [place] [address] Phone [phone] Care Team Providers Name Role Phone Cathy Bell Primary Care Provider [phone] Source Comments This disclosure is being made pursuant to the Care Everywhere program, applicable federal and state laws, and may not contain all informaitonavailable regarding this patient.[facility] ([facility]) Active Allergies and Adverse Reactions Allergen [...]
== END 2017-02-24 23:40 | disposition home or self-care (01) ==
LOC: ER 16:34
DX: K80.20 Calculus of gallbladder without cholecystitis without obstruction (principal); R10.11 Right upper quadrant pain; R07.81 Pleurodynia; F17.200 Nicotine dependence, unspecified, uncomplicated